=== PATIENT | female | born 1995 | race Hispanic/Latino ===

== ENCOUNTER 2016-04-30 17:12 | Inpatient (IN) | payer OTHER ==
[~2016-04-30] VITALS: Ht 142.2 cm; Wt 83.0 kg
[~2016-04-30 17:12] MED LIST: PROM25TA14 PO
[2016-04-30] MEDS ORDERED: Lactated Ringer's 1,000 ML IV PRN (17:32)
[2016-04-30] MEDS ORDERED: Oxytocin 30 Units/500 mL LR 30 UNITS in IV Premix 1 EACH IV PRN ×2 (17:35→22:50)
[2016-04-30] MEDS ORDERED: Carboprost 250 mCg/mL Inj IM PRN ×2 (17:35→22:50)
[2016-04-30] MEDS ORDERED: Oxytocin 10 Unit/mL Inj IM PRN ×2 (17:35→22:50)
[2016-04-30] MEDS ORDERED: fentaNYL-PF 50 mCg/mL 2 mL Inj IVPUSH PRN (17:35)
[2016-04-30] MEDS ORDERED: Hemorrhage Kit, Post Partum XX ONE ×2 (17:35→22:50)
[2016-04-30] MEDS ORDERED: Penicillin G K Inj 5,000,000 UNITS in Dextrose 5% Minibag Plus 100 ML IV ONE (17:35)
[2016-04-30] MEDS ORDERED: Methylergonovine 0.2 mg/mL Inj IM PRN ×2 (17:35→22:50)
[2016-04-30] MEDS ORDERED: Sodium Chloride LOK Flush 10 mL Syringe IVFLUSH PRN (17:35)
[2016-04-30] MEDS ORDERED: Lactated Ringer's 500 ML IV ONE (17:38)
[2016-04-30] MEDS ORDERED: Oxytocin 30 Units/500 mL LR Premix IV ONE ×2 (17:39→17:46)
[2016-04-30] MEDS ORDERED: Penicillin G K 5,000,000 Units Inj ONE ×2 (17:40)
[2016-04-30] MEDS ORDERED: EPHEDrine Sulfate 50 mg/mL Inj IVPUSH PRN (17:40)
[2016-04-30] MEDS ORDERED: Ondansetron 2 mg/mL 2 mL Inj IVPUSH PRN (17:40)
[2016-04-30] MEDS ORDERED: fentaNYL 2 mCg/mL-Bupiv 0.125% 100 ML EPIDURAL SCH (17:40)
[2016-04-30] MEDS ORDERED: Atropine 1 mg/10 mL (Code) Syringe IVPUSH PRN (17:40)
[2016-04-30] MEDS ORDERED: 0.9% Sodium Chloride 0 ML ONE (17:44)
[2016-04-30] MEDS ORDERED: 0.9% Sodium Chloride 250 ML ONE (17:45)
[2016-04-30 18:09] LABS: Mean Corpuscular Hemoglobin 26.3 pg (27.0-35.0); Mean Corpuscular Volume 80.3 fL (81-100)
--- NOTE | 2016-04-30 18:52 | PCM.HPANE ---
Patient Data Surgeon Admitting Provider:Miguel Angel Barnett MD Attending Provider:Miguel Angel Barnett MD Primary Care Physician:Jennifer Lorenzana MD Other Provider:Ney Berry Anesthesia Reason for Visit Active Labor Ht/WT & BMI Body Mass Index Allergies Coded Allergies: amitriptyline (Verified Allergy, Unknown, UNKNOWN, 09/02/15) naproxen (Verified Adverse Reaction, Unknown, Nausea,Vomiting, 09/02/15) Past Anesthesia History Anesthesia History: Denies:: Anesthesia Reactions Diabetes History Hx Diabetes?: No MRSA MRSA: No Medications Active Scripts Promethazine 25 Mg [id number] Mg PO TID PRN For Nausea #20 TABLET Ref 0 Prov:Dinesh Enriquez MD 09/14/15 History History of ENT Problems?: No HEENT History: Denies:: Sinus Problem Hx of Heart Problems?: No Cardiovascular History: Denies:: Congestive Heart Failure Hypertension Hx of Respiratory Problem?: Yes Respiratory History: Positive for:: Asthma (infrequent symptoms and use of inhaler, seasonal) Pneumonia Denies:: Tuberculosis Hx Neurologic Problems?: Yes Neurological History: Positive for:: Dizziness Headaches Denies:: Seizures Hx of GI Problems?: No Hx of Problems?: Yes Genitourinary History: Positive for:: Urinary Tract Infection Denies:: Kidney Stones Female Hx: Denies:: Currently Endometriosis Pelvic Inflammatory Problems with Breasts? Hx Musculoskeletal Problems?: No Hx of Psycho/Social Problems?: Yes Psycho Social History: Positive for:: Hx Depression Denies:: Anxiety Bipolar Disorder Suicide Attempt Hx Surgeries?: No Hx Any Other Health Problems?: No Other History: Denies:: Cancer Endocrine Disease Hospitalization Thyroid Disease History Blood Transfusions: Positive for:: Blood Transfusions Denies:: Blood Transfuse Reaction Hx Diabetes: No Hx Alcohol Use: NoHx Substance Use: No Smoking Status: Former Smoker Have You Smoked inLast 12 mo: Yes (stopped after pragnancy) Stop/Bang Risk Assessment Category Category 1A: Patient has history of documented sleep apnea, and HAS NOT received any narcotic, sedative or anesthesia administration during this stay. Category 1B: Patient has history of documented sleep apnea, and HAS received any narcotic , sedative or anesthesia administration during this stay Category 2: Patient has SUSPECTED Obstructive Sleep Apnea, and HAS received any narcotic , sedative or anesthesia administration during this stay. Category 3: Patient has SUSPECTED Obstructive Sleep Apnea and HAS NOT received narcotic, sedative or anesthesia administration during this stay. Category 4: Outpatient in Procedural Areas with known sleep apnea or who screen positive for High Risk via the STOP/BANG questionnaire. Exam Exam General Appearance: Alert, Oriented X3, Cooperative, No Acute Distress HEENT/AIRWAY: MP 2 Lungs: Clear to Auscultation Heart: Exam Unremarkable Plan Impression Patient chart reviewed, patient interviewed and anesthestic plan with risks, benefits, and alternatives discussed, and informed consent obtained. ASA Physical Status: ASA3 Severe Disease (BMI>40) Anesthetic Plan: Epidural Bene/Risks/Altern/Consents: Yes HP Complete Prior to Induction: Yes Norm Bowens MD Apr 30, 2016 17:38
[2016-04-30] MEDS: Lactated Ringer's 1,000 ML IV SCH (19:30)
[2016-04-30] MEDS ORDERED: Penicillin G K 3,000,000 Units/50 mL D5W Premix IV ONE (21:05)
[2016-04-30] MEDS ORDERED: Benzocaine (Dermoplast) 20% 60 Gm Spray TOPICAL PRN (22:50)
[2016-04-30] MEDS ORDERED: Witch Hazel-Glycerin Pads TOPICAL PRN (22:50)
[2016-04-30] MEDS ORDERED: LANOlin HPA 7 Gm Ointment TOPICAL PRN (22:50)
[2016-04-30] MEDS ORDERED: Lactated Ringer's 1,000 ML IV SCH (22:50)
[2016-05-01] MEDS ORDERED: Sodium Chloride LOK Flush 10 mL Syringe IVFLUSH SCH (00:30)
[2016-05-01 06:27] LABS: Mean Corpuscular Hemoglobin 26.3 pg (27.0-35.0); Mean Corpuscular Volume 80.5 fL (81-100)
[2016-05-01] MEDS: Lactated Ringer's 1,000 ML IV SCH (09:38)
[2016-05-01] MEDS ORDERED: Ascorbic Acid 500 mg Tablet PO SCH (09:55)
[2016-05-01] MEDS ORDERED: FERR-74 PO (10:14)
[2016-05-01] MEDS ORDERED: IBUP-1827 PO (10:14)
[2016-05-01] MEDS ORDERED: OXYC1TAB24 PO (10:14)
[2016-05-01] MEDS ORDERED: Lanolin TOPICAL (10:14)
[2016-05-01] MEDS ORDERED: DOCU-41 PO (10:14)
[2016-05-01] MEDS ORDERED: Ascorbic Acid PO (10:14)
--- NOTE | 2016-05-01 10:18 | PCM.DIOB ---
Obstetrical Disch Instruction Date of Service: May 01, 2016 Dates of Hospitalization Date of Hospital Admission Apr 30, 2016 at 17:15 Providers Admitting Physician: Miguel Angel Barnett MD Primary Care Physician: Jennifer Lorenzana MD Attending Physician: Miguel Angel Barnett MD Additional Instructions Discharge Instructions Discharge Diagnosis: Status post normal vaginal delivery Post Anemia Disposition: home. Discharge Condition: stable. Diet Discharge Diet: No restrictions Activity Discharge Activity-General: Pelvic Rest for 6 weeks, Be up and about, Balance rest and activity, No lifting >10 pounds for 4-6 weeks Dressing and Incisional Care Hygiene: May shower, Perineal care, Sitz bath Follow Up Plan Follow-up Provider (F9): Miguel Angel Barnett MD Follow-up appointment: Weeks (2 ) or sooner if needed. Call your provider for: Fever or Chills, Shortness of breath, Heavy vaginal bleeding, Heavy bleeding, Epigastric pain, Excessive constipation, Vaginal discomfort, Red painful breasts, Other (headache, change in vision, leg swelling in one leg more than the other, change in color or painful legs. ) Izzy Pollack MD May 01, 2016 10:18
--- NOTE | 2016-05-01 10:21 | PCM.DC.OB ---
Obstetrical Discharge Summary Date of Service May 01, 2016 Date of hospital admission Apr 30, 2016 at 17:15 Date of Discharge: May 01, 2016 Providers Admitting Physician: Miguel Angel Barnett MD Primary Care Physician: Jennifer Lorenzana MD Attending Physician: Miguel Angel Barnett MD Hospital Course: Discharge diagnosis: Status post normal vaginal delivery Post Anemia Problems: Hospital Course: Patient is a 20 year old female G2now P2002 was admitted at 40 weeks 1 day for active labor. Status post normal vaginal delivery on 04/30/16, see delivery note for details. COMPLICATED WITH: 1. Migraines Headache. 2. Mils Asthma. 3. Recurrent UTI. 4. FOB with Fhx of mitochondrial disease , FOB is negative. 5. GBS positive. OUTCOME: Female infant, apgars 7 and 9 at 1 and 5 minutes respectively. Weight 3193g (7lb1oz) DISCHARGE DAY EXAM: day number 1, patient is ambulating, tolerating regular diet without nausea or vomiting and voiding without difficulty. Pain was well controlled. No chest pain, no headache or change in vision. VS: reviewed and stable.104/61, 79, 18, 36.0 General: Alert, Oriented X3 Lungs: Clear to Auscultation, Clear to Percussion Heart: Regular Rate/Rhythm, Normal S1, Normal S2 Abdomen: Fundus firm Extremities: No tenderness/swelling, Edema 1+ Lochia: normal. LABS: Laboratory Tests 72 Hours Test 04/30/16 17:50 05/01/16 06:00 White Blood Count 12.6th/mm3 (3.8-10.1) 15.6th/mm3 (3.8-10.1) Red Blood Count 4.41mil/mm3 (3.90-5.20) 3.84mil/mm3 (3.90-5.20) Hemoglobin 11.6g/dL (12.0-15.6) 10.1g/dL (12.0-15.6) Hematocrit 35.4% (35.0-46.0) 30.9% (35.0-46.0) Mean Corpuscular Volume 80.3fL (81-100) 80.5fL (81-100) Mean Corpuscular Hemoglobin 26.3pg (27.0-35.0) 26.3pg (27.0-35.0) Mean Corpuscular Hemoglobin Concent 32.8% (32.0-37.0) 32.7% (32.0-37.0) Red Cell Distribution Width 14.0% (12.3-15.4) 13.7% (12.3-15.4) Platelet Count 306bil/L (150-400) 250bil/L (150-400) labs: Blood type A positive, Rubella immune, HIV (NR), HepBsAg (NR), RPR (NR), Quad screen negative, 1 hour DM screen negative at 20 and 25 weeks, GC/CT negative 09/10/2015, Pap smear WNL 09/10/2015. Disposition: home. Discharge Condition: stable. Diet Discharge Diet: No restrictions Activity Discharge Activity-General: Pelvic Rest for 6 weeks, Be up and about, Balance rest and activity, No lifting >10 pounds for 4-6 weeks Dressing and Incisional Care Hygiene: May shower, Perineal care, Sitz bath Follow Up Plan Follow-up Provider (F9): Miguel Angel Barnett MD Follow-up appointment: Weeks (2 ) or sooner if needed. Call your provider for: Fever or Chills, Shortness of breath, Heavy vaginal bleeding, Heavy bleeding, Epigastric pain, Excessive constipation, Vaginal discomfort, Red painful breasts, Other (headache, change in vision, leg swelling in one leg more than the other, change in color or painful legs. ) ([Lanolin]) 2 APPLIC/GM OINT 1 APPLIC TOPICAL PRN PRN PRN apply to nipples Prescribed by: SRIRAM SZYMANSKI MD ([Ascorbic Acid]) 500 MG TABLET 500 MG PO DAILY Prescribed by: SRIRAM SZYMANSKI MD Docusate Sodium (Colace) 100 Mg Capsule 100 MG PO DAILY Prescribed by: SRIRAM SZYMANSKI MD Ferrous Sulfate (Feosol) 325 Mg Tablet 325 MG PO DAILY Prescribed by: SRIRAM SZYMANSKI MD Ibuprofen (Ibuprofen) 600 Mg Tablet 600 MG PO Q6H PRN PRN For Mild Pain Prescribed by: SRIRAM SZYMANSKI MD oxyCODONE-Acetaminophen 5-325 mg (oxyCODONE-Acetaminophen 5-325 mg) 1 Each Tablet 1 TAB PO Q4H PRN PRN For Pain Prescribed by: SRIRAM SZYMANSKI MD Discontinued Medications Promethazine (Promethazine) 25 Mg Tablet 25 MG PO TID PRN PRN For Nausea Prescribed by: MD Jaki SORIANO Omaima A MD May 01, 2016 10:21
[2016-05-01 17:33] VITALS: BP 114/76; PULSE 93; RESP 16
--- NOTE | 2016-05-01 19:01 | HP ---
[address] [address] HISTORY AND PHYSICAL PATIENT: GISSELLE WONG V : 1995 MR#: [id number] ADMIT: 04/30/2016 JOB ID: [id number] This is a 30-year-old female, 2, para 1, at 40 weeks , presented to [facility] for labor. At triage she was examined at 5 cm dilated with bulging membranes, category 1 tracing. Contraction every 2-3 minutes. This is a patient from [facility]. She started her care in the 1st trimester. She has routine care. Her labs are all in normal range. Her GBS was positive though. ALLERGIES: She declined allergies. PAST MEDICAL HISTORY: Declined. PAST SURGICAL HISTORY: Declined. OBSTETRICAL HISTORY: She has one vaginal delivery about four years ago, 7 pounds. GYNECOLOGIC HISTORY: Not complicated. SOCIAL HISTORY: She is not smoking. She is not drinking alcohol and declined drug usage. PHYSICAL EXAMINATION: She is afebrile. Cardiac: RR, no murmur. Pulmonary: Bilaterally clear. Abdomen soft, gravid. Estimated weight about 7.5 pounds. Pelvic examination: Per triage nurse she was 5 cm dilated, with bulging membrane, and progressed to 9.5 cm dilated with bulging membranes during the process of admission. heart tracing category 1. Contraction every 3 minutes. ASSESSMENT AND PLAN: A 20-year-old female, 2, para 1, at 40 weeks in active labor. Group B Streptococcus positive. 1. We will start her on penicillin for GBS positive prophylaxis. 2. Patient can get epidural for pain if she desires to, but patient is very active and close to full dilation. We discussed with her whether she wants to break her water first to see whether she can progress to full dilation and push some. 3. We will expect a vaginal delivery. At this time, the patient is in active labor. No need to start her augmentation, but if labor is not going smoothly, may need augmentation.
--- NOTE | 2016-05-01 19:15 | OP ---
[address] [address] OPERATIVE REPORT PATIENT: GISSELLE WONG V : 1995 MR#: [id number] ADMIT: 04/30/2016 JOB ID: [id number] DATE OF SURGERY: 04/30/2016 SURGEON: Belgica Dia MD. PREOPERATIVE DIAGNOSIS(ES): POSTOPERATIVE DIAGNOSIS(ES): This is a 20-year-old female. She is 2, para 2 now at 40 weeks . She presented to [facility] for labor and she was admitted at 5 cm dilated with bulging membrane. After admission, It was noted she was 9.5 cm dilated with a bulging membrane. Patient has pain for contractions. She started her penicillin for GBS status. At that time, decision was made to rupture membranes to see whether baby's head can get down faster. AROM was performed. Light meconium was noticed and the head station was at -3 after rupture of membrane and with no significant descent with contraction. At that time, plan was made to get epidural for pain management. The patient got epidural for pain management and she feels much comfortable. Before the epidural for the pain, patient heart tracing was category one. Twenty minutes to 30 minutes after the epidural was placed, the patient started to have a category 2 tracing with baseline at 140 moderate variability but multiple late decels, and also include one prolonged decel, lasted for 2 minutes. With position change, oxygen, IV fluid, the tracing recovered to category one. At that time, examination showed she was about 7-8 cm dilated, soft cervix, 80% effaced, -1 to -2 station. Still light meconium. The patient was allowed to continue her labor. She had intermittent category 2 tracing with baseline 140s. Most of time is moderate variability with intermittent marked variability. There were variable decels and occasional late decels. Most of them responded to intrauterine resuscitation. Then patient progressed to full dilation. She was instructed to push. There was not a significant descent of head with pushing. heart tracing at that time was category two. Still responded to resuscitation. The patient was allowed to continue with labor down with position change because at this time patient was tried on the side position, exaggerated position and hand and knee position to try to see whether there could be spontaneous rotation of the ROP position to anterior position, but this effort failed, both by spontaneous rotate or manual rotate. Then, it was noted the heart tracing is not responding to position change or oxygen. At this time, decision was made that the infant had to be delivered as soon as possible. Then, I will try to let patient push and see whether there is descent of head and the baby. Then I could apply vacuum delivery. If there is no descent of head or there is failure of vacuum delivery, the baby needed to be delivered by section. Discussed with the patient the plan and they agree. The patient was placed in dorsal lithotomy position. She was instructed to push again, and at this time there was significant descent of head. It was noticed and before we need to place vacuum the delivered at LUDA position. There was one round nuchal cord which was loose, released. Then shoulder and chest delivered without difficulty. Cord was clamped and cut immediately and handed to the awaiting health care law specialist for resuscitation. Then, cord blood gas collected. Regular cord blood collected and then placenta delivered spontaneously completely with three-vessel cord. Uterus was well contracted after delivery of the placenta. No perineum laceration was noticed. There was a periurethral laceration and was no active bleeding. A couple of intermittent stitches were placed with 4-0 Vicryl. Hemostasis confirmed. All instrument, needles, laps and gauzes counted correct twice. Cord blood gas came back and the cord blood, pH 7.176, e base -10.3, the arterial pH 7.072, e base -12.1. The score was not available at dictation. The weight was not available at dictation. [facility]
[2016-05-01] MEDS ORDERED: Penicillin G K Inj 3,000,000 UNITS in IV Premix 1 EACH IV SCH (21:30)
--- NOTE | 2016-05-04 11:11 | PATH ---
SURGICAL PATHOLOGY Attending Physician:Belgica Dia MD CASE STATUS: Signed Out PATIENT NAME: GISSELLE WONG V. PID: [id number] : 1995 DATE COLLECTED:04/30/2016 00:00 SPECIMEN: Placenta CLINICAL HISTORY: DISTRESS 1). PLACENTA FINAL DIAGNOSIS: Placenta (491 grams): Mature placenta with meconium staining. Negative for chorioamnionitis and funisitis. ICD10 O77.9 GROSS DESCRIPTION: The specimen is received in formalin, labeled with the patient's name and labeled "placenta". It consists of an ovoid placenta with attached umbilical cord and membranes. The membranes are complete and inserted marginally. The membranes are opaque and meconium staining is present. The umbilical cord is inserted eccentrically 5.5 cm from the margin. It measures 5.3 cm in length and averages 1.2 cm in diameter. The external surface is chirinos-white and the cut surface shows three vessels. Trimmed weight of the placenta is 491 grams, and the disc measures 16.5 x 15.0 x 3.5 cm. The surface is pink-blue and glistening. The maternal surface is complete. The cut surface shows beefy, spongy red parenchyma without gross lesions. Knobber sections are submitted as follows: A-membrane rolls, B-umbilical cord, W-P-cwpg-thickness parenchyma. (SARAH:[id number]) ICD-9 CODES: CPT CODES: 1: 90550 Electronically Signed Out Declan Adkins MD [facility] Pathology [facility] [address], [place] [address] Technical component performed at [facility], [facility] [address], [place], [address]
== END 2016-05-01 18:10 | disposition home or self-care (01) | DRG 775 ==
LOC: FBCO 17:12 → FBC 17:15
PROVIDERS: ADMIT Obstetrics & Gynecology; ATTEND Obstetrics & Gynecology
PROC: 10D07Z7 Extraction of Products of Conception, Internal Version, Via Natural or Artificial Opening (ICD-10-PCS; principal; 2016-04-30)
PROC: 0UQMXZZ Repair Vulva, External Approach (ICD-10-PCS; 2016-04-30)
PROC: 10907ZC Drainage of Amniotic Fluid, Therapeutic from Products of Conception, Via Natural or Artificial Opening (ICD-10-PCS; 2016-04-30)
DX: O71.5 Other obstetric injury to pelvic organs (principal); Z3A.40 40 weeks gestation of pregnancy; O77.0 Labor and delivery complicated by meconium in amniotic fluid; O76 Abnormality in fetal heart rate and rhythm complicating labor and delivery; Z37.0 Single live birth; O69.82X0 Labor and delivery complicated by other cord entanglement, without compression, not applicable or unspecified; O99.824 Streptococcus B carrier state complicating childbirth

== ENCOUNTER 2016-05-21 22:15 | Emergency (ER) | payer OTHER ==
[~2016-05-21] VITALS: Ht 139.7 cm; Wt 80.0 kg
[~2016-05-21 22:15] MED LIST changes: +Ascorbic Acid PO; +DOCU-41 PO; +FERR-74 PO; +IBUP-1827 PO; +Lanolin TOPICAL; +OXYC1TAB24 PO; -PROM25TA14 PO
[2016-05-21 22:24] VITALS: BP 132/86; PULSE 74; RESP 18; O2SAT 100
[2016-05-21 22:49] LABS: Mean Corpuscular Hemoglobin 26.9 pg (27.0-35.0)
[2016-05-21 22:50] LABS: BASOPHILS % (AUTO) 0.2 % (0-3); EOSINOPHILS % (AUTO) 0.5 % (0-5); MONOCYTES % (AUTO) 4.2 % (4-12); NEUTROPHILS % (AUTO) 75.3 % (40-74); Platelet Count 388 bil/L (150-400)
[2016-05-21 23:15] LABS: Magnesium 2.2 mg/dL (1.6-2.6)
[2016-05-21 23:34] LABS: APPEARANCE,URINE HAZY (CLEAR,HAZY); COLOR,URINE YELLOW (YELLOW); OCCULT BLOOD,URINE NEGATIVE (NEGATIVE)
[2016-05-21] MEDS ORDERED: Ondansetron 2 mg/mL 2 mL Inj ONE (23:34)
--- NOTE | 2016-05-21 23:54 | ED.REPORT ---
HPI-Abd Pain F Under 40 Date of Service May 21, 2016 ED Provider: Dae Stevenson DO The patient is a 20 year old female who presents to the ED due to mild RUQ abdominal pain onset earlier today while she was taking a walk. She is 3 weeks post- and currently breast feeding. She denies nausea, vomiting, and dysuria. Now when she eats she gets a dull cramp in her right upper quadrant. Nursing Notes Stated Complaint: UPPER ABD PAIN,NAUSIA,VOMITTING Chief Complaint: Female Abdominal Pain Nursing Notes Reviewed: Yes Allergies: Coded Allergies: amitriptyline (Verified Allergy, Unknown, UNKNOWN, 05/21/16) naproxen (Verified Adverse Reaction, Unknown, Nausea,Vomiting, 05/21/16) Scheduled ([Ascorbic Acid]) 500 MG TABLET 500 MG PO DAILY Docusate Sodium (Colace) 100 Mg Capsule 100 MG PO DAILY Ferrous Sulfate (Feosol) 325 Mg Tablet 325 MG PO DAILY Scheduled PRN ([Lanolin]) 2 APPLIC/GM OINT 1 APPLIC TOPICAL PRN PRN PRN apply to nipples Ibuprofen (Ibuprofen) 600 Mg Tablet 600 MG PO Q6H PRN PRN For Mild Pain oxyCODONE-Acetaminophen 5-325 mg (oxyCODONE-Acetaminophen 5-325 mg) 1 Each Tablet 1 TAB PO Q4H PRN PRN For Pain General Time Seen by MD: 23:53 Chief Complaint Abdominal pain Hx Obtained From: Patient Arrived By: Walk-in Sudden in Onset?: Yes Onset Occurred: 5 - 8 hours ago Context of Onset: Other (walking) Symptom Duration: Since onset Location: : RUQ Quality: Painful Radiation: : Does not radiate Severity: Current: Moderate Recent Healthcare: Recent doctor visit Similar Sx Previous: No Past Medical History Past Medical History Chronic headaches Asthma UTIs Reports: Depression, Migraines Past Surgical History denies Family History noncontributory Smoking History Former Smoker Social History Other Social History: Good social support, Local resident Ambulatory Status Independent Review of Systems Constitutional: Denies: Chills, Fever Respiratory: Denies: Dyspnea on exertion, Pleuritic pain Cardiovascular: Denies: Chest pain GI: Reports: Abdominal pain, Denies: Nausea, Vomiting Female: Denies: Dysuria Complete sys rev & neg: except as marked. Physical Exam Initial Vital Signs Vital Signs (First) Date Time Temp Pulse Resp B/P Pulse Ox O2 Delivery O2 Flow Rate FiO2 05/21/16 22:24 36.7 74 18 132/86 100 Room Air Initial VS: Reviewed Head / Eyes: Atraumatic, Normocephalic, PERRL ENT: Mucous membranes moist, Conjunctiva normal Neck: Supple, Non-tender Extremities: Vascular intact, Neuro intact, No swelling Psychiatric: Mood/affect normal, Behavior normal General/Constitutional: Awake, Alert, Cooperative, Not toxic appearing Respiratory / Chest: Atraumatic, Breath sounds NL, Breath sounds = bilat Cardiovascular: Heart rate NL, Regular rhythm, Heart sounds NL Tenderness/Guarding/Rebound: Positive: Tender RUQ... (moderate right upper quadrant tenderness with a positive Bergman sign.) mild tenderness to palpation RUQ Back: Atraumatic, Inspection NL, Full range of motion Interpretation & Diagnostics Interpretation & Diagnostics: ABDOMINAL US IMPRESSION: multiple small stones Lab Results Interpretation Result Diagram: 05/21/16223405/21/162234 Test 05/21/16 22:35 05/21/16 23:00 White Blood Count 8.0th/mm3 (3.8-10.1) Red Blood Count 5.06mil/mm3 (3.90-5.20) Hemoglobin 13.6g/dL (12.0-15.6) Hematocrit 42.0% (35.0-46.0) Mean Corpuscular Volume 83.0fL (81-100) Mean Corpuscular Hemoglobin 26.9pg (27.0-35.0) Mean Corpuscular Hemoglobin Concent 32.4% (32.0-37.0) Red Cell Distribution Width 14.5% (12.3-15.4) Platelet Count 388bil/L (150-400) Neutrophils (%) (Auto) 75.3% (40-74) Lymphocytes (%) (Auto) 19.7% (14-46) Monocytes (%) (Auto) 4.2% (4-12) Eosinophils (%) (Auto) 0.5% (0-5) Basophils (%) (Auto) 0.2% (0-3) Band Neutrophils % 0% (1-5) Sodium Level 153mEq/L (134-144) Potassium Level 4.3mEq/L (3.5-5.2) Chloride Level 101mEq/L (97-108) Carbon Dioxide Level 27mmol/L (18-29) Blood Urea Nitrogen 15mg/dL (6-20) Creatinine 0.62mg/dL (0.57-1.00) Estimat Glomerular Filtration Rate 172mL/min (>59) Glucose Level 98mg/dL (60-99) Calcium Level 9.4mg/dL (8.5-10.1) Magnesium Level 2.2mg/dL (1.6-2.6) Total Bilirubin 0.5mg/dL (0.0-1.2) Aspartate Amino Transf (AST/SGOT) 41U/L (0-50) Alanine Aminotransferase (ALT/SGPT) 59U/L (0-32) Alkaline Phosphatase 126U/L (25-150) Total Protein 7.4g/dL (6.4-8.4) Albumin 4.5g/dL (3.4-5.0) Lipase 38U/L (13-60) Hold Grossman Top Tube Received (Received) Urine Color Yellow (YELLOW) Urine Appearance Hazy (CLEAR,HAZY) Urine pH 8.0 (5.0-8.0) Urine Specific [place] 1.010 (1.003-1.035) Urine Protein Negativemg/dL (NEG,TRACE) Urine Glucose (UA) Negativemg/dL (NEGATIVE) Urine Ketones 15mg/dL (NEGATIVE) Urine Occult Blood Negative (NEGATIVE) Urine Nitrite Negative (NEGATIVE) Urine Bilirubin Negative (NEGATIVE) Urine Urobilinogen 1.0mg/dL (NORMAL) Urine Leukocyte Esterase Small (NEGATIVE) Urine RBC 3-10/hpf (0-2) Urine WBC 11-50/hpf (0-5) Urine Epithelial Cells Moderate/hpf (NONE-MOD) Urine Crystals None seen (NONE SEEN) Urine Bacteria Few/hpf (NONE-FEW) Urine Hyaline Casts None/lpf (NONE) Urine Granular Casts None seen (NONE SEEN) Urine Waxy Casts None seen (NONE SEEN) Urine Red Blood Cell Casts None seen (NONE SEEN) Urine White Blood Cell Casts None seen (NONE SEEN) Urine Mucus None seen (None Seen) Urine Trichomonas None seen (NONE SEEN) Urine Yeast None (NONE SEEN) Urinalysis Comment None Urine Culture Reflexed Indicated Re-Eval/Medical Decision Med Decision/Clinical Course 20-year-old female presents with classic biliary colic. She is tender in the right upper quadrant. She has multiple gallstones. She was treated appropriately and at discharge she was pain free. Her symptoms were not consistent with pulmonary emboli or with aortic dissection or acute coronary syndrome. I will refer her to surgery for outpatient follow-up. She had no indicators of cholecystitis. She is warned to not breast feed while taking the opiates. Re-Evaluation/Progress : Time of Eval: 02:16 Patient Status: Pain improved Re-Evaluation/Progress Note: Pt feels much better. Informed of diagnosis of gallstones. F/U and RTER warnings given. Pt understands and agrees with plan. Counseled Regarding: Diagnosis, Lab results, Need for follow-up, When/why to return to ED Discharge & Departure Primary Impression: Biliary colic Additional Impression: Choledocholithiasis Disposition: Home Discharge Condition All VS Reviewed: Yes Condition: Stable Patient Instructions: Acute Abdominal Pain (ED), Cholelithiasis (DC) Additional Instructions: you have signs and symptoms consistent with the passage of gallstones. The ultrasound shows that you have many small gallstones. You are tender over your gallbladder. Most likely your gallbladder is the source of the pain. There were no signs however of a gallbladder infection. Take 1-2 Percocet every 6 hours as needed for severe pain. Eat a bland low-fat diet. Read the aftercare instructions given. Do not breast-feed while under the influence of the Percocet. Call the referral surgeon on Monday and set up a follow-up in the office. I suspect that you may need to have your gallbladder removed at some point in time. Return if any problems or any new or worsening symptoms. Return to the department if you develop any worsening pain, fever or you developa yellowish discoloration to your eyes or skin. Do not drive or drink alcohol or consume acetaminophen while taking the Percocet Referrals: Jennifer Lorenzana MD (PCP) Nathan Mcfarland MD Attestation Portion of this note were transcribed by Sofya Cotton. I, Dr. Stevenson, personally performed the history, physical exam, and medical decision-making: I reviewed and confirmed the accuracy for the information in the transcribed note. Signed by: brooke Troy, 05/22/16 0200 copies to: Jennifer Lorenzana MD, Todd P DO May 21, 2016 23:54 Sofya Cotton May 21, 2016 23:58
[2016-05-22] MEDS ORDERED: 0.9% Sodium Chloride 1,000 ML IV SCH
[2016-05-22] MEDS ORDERED: HYDROmorphone 0.5 mg/0.5 mL iSecure Syringe IVPUSH PRN
[2016-05-22] MEDS ORDERED: Ondansetron 2 mg/mL 2 mL Inj IVPUSH PRN
[2016-05-22] MEDS ORDERED: _oxyCODONE/APAP 5-325 mg Tablet PO PRN (02:20)
[2016-05-22 02:41] VITALS: BP 118/85; PULSE 70; RESP 16; O2SAT 98
--- NOTE | 2016-05-22 09:49 | DRSVH ---
PROCEDURE: US ABDOMEN ([id number]) INDICATIONS: RUQ pain and TTP TECHNIQUE: Real-time scanning was performed of the abdominal and retroperitoneal organs, with image documentatio n. COMPARISON: [facility], [place], ABD/PELVIS W/CON (PNL), 08/26/2013, 5:32. FINDINGS: Liver: Liver is normal in size and diffusely increased echotexture. Gallbladder: There are multiple mobile gallstones. No gallbladder wall thickening, pericholecystic f luid or sonographic Bergman's sign. Biliary ducts: Intrahepatic bile ducts are non-dilated. Extrahepatic bile duct caliber measures 6.8 mm. Normal is 6-7 mm or less in diameter, or 10 mm or less post-cholecystectomy. Pancreas: Obscured by overlying bowel gas. Spleen: Spleen is normal in size and homogeneous in echotexture. Kidneys: Kidneys are normal in size and echotexture. Right kidney measures 9.1 cm long; left kidney measures 10.3 cm long. No hydronephrosis or nephrolithiasis. No solid masses. Aorta: Visualized aorta is normal in caliber at less than 3 cm. Iliacs: Proximal common iliac arteries are normal in caliber at less than 2.5 cm. IVC: Intrahepatic inferior vena cava is patent. Miscellaneous: No free abdominal fluid. IMPRESSION: 1. Cholelithiasis. The common bile duct is at the upper limits of normal in caliber. No definitive ul trasound evidence for acute cholecystitis. 2. Diffusely increased hepatic echotexture. This finding is most likely secondary to hepatic fatty i nfiltration although other hepatocellular disease may have a similar appearance. Recommend clinical c orrelation. 3. Pancreas obscured by overlying bowel gas. No significant discrepancy with the overnight stocker radiology preliminary report. Dictated by: Maryuri Pedraza M.D. on 05/22/2016 at 9:44 Approved by: Maryuri Pedraza M.D. on 05/22/2016 at 9:47
== END 2016-05-22 02:36 | disposition home or self-care (01) ==
LOC: SED 22:15
DX: O99.63 Diseases of the digestive system complicating the puerperium (principal); K80.50 Calculus of bile duct without cholangitis or cholecystitis without obstruction; J45.909 Unspecified asthma, uncomplicated; Z87.891 Personal history of nicotine dependence; Z88.8 Allergy status to other drugs, medicaments and biological substances
CPT/HCPCS: 36415; 76700; 80053; 81000; 83690; 83735; 85025; 87086; 87088; 96374; 96375; 99285; J1170; J2405